=== PATIENT | female | born 1985 | race Caucasian/White ===

== ENCOUNTER 2017-07-17 18:59 | Observation (INO) | payer MEDICAID ==
[2017-07-17] MEDS ORDERED: Sodium Chloride 0.9% 1,000 ML IV ONE (19:09)
--- NOTE | 2017-07-17 19:09 | EDM.PDOC ---
ED HPI GENERAL MEDICAL PROBLEM - General Chief Complaint: Back Pain or Injury Stated Complaint: LOWER BACK PAIN Time Seen by Provider: 07/17/17 19:01 Source of Information: Reports: Patient, RN, RN Notes Reviewed History Limitations: Reports: No Limitations - History of Present Illness INITIAL COMMENTS - FREE TEXT/NARRATIVE: Patient presents to the emergency room at [facility] complaining of right flank pain that started about 3 hours ago. The patient states that the pain was unprovoked. The patient states the pain is sharp and stabbing. The patient denies any injury or trauma to the back. Patient denies any back surgeries. The patient states she has noticed an odor to her urine and does have trouble urinating. The patient states that it is difficult to walk and bend due to the pain. The patient denies any numbness tingling or paresthesia to any extremity. The patient states in October 2015 she did have kidney stones which caused her to become septic. At that time she had a double J-stent placed in the right ureter by Dr. Debbie Campo. The patient denies any abdominal or pelvic pain. The patient complains of nausea but she has not vomited. No diarrhea. Patient states that she may have seen blood in her urine but she is not sure. The patient states she has a poor appetite and has not eaten since yesterday. 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 (see below) (None) Right Flank Pain Score (Numeric/FACES): 9 - Related Data Allergies Allergy/AdvReac Type Severity Reaction Status Date / Time buspirone [From BuSpar] Allergy Confusion Verified 07/17/17 19:19 diphenhydramine HCl Allergy Itching Verified 07/17/17 19:19 [From Benadryl] Penicillins Allergy Rash Verified 07/17/17 19:19 Home Meds: Home Meds Acetaminophen [Tylenol] 650 mg PO Q4H 01/02/17 [History] Chlorhexidine [Chlorhexidine Flavor] 1 applic PO DAILY 01/02/17 [History] Ibuprofen 800 mg PO Q4H PRN 01/02/17 [History] LORazepam 0.5 mg PO TID PRN 01/02/17 [History] Propranolol [Inderal LA] 80 mg PO DAILY 01/02/17 [History] QUEtiapine [SEROquel] 100 mg PO BEDTIME 01/02/17 [History] Venlafaxine [Effexor XR] 150 mg PO DAILY 01/02/17 [History] Zolpidem [Ambien] 10 mg PO BEDTIME PRN 01/02/17 [History] Levofloxacin [IMW: Levofloxacin] 750 mg PO DAILY #7 tab 01/04/17 [Rx] Nicotine [Habitrol] 14 mg TRDERM DAILY #30 patch 01/04/17 [Rx] Sulfamethoxazole/Trimethoprim [Bactrim Ds Tablet] 1 each PO BID #14 tablet 01/04 [Rx] Tamsulosin HCl [Flomax] 0.4 mg PO DAILY #5 cap.er.24h 07/17/17 [Rx] Past Medical History HEENT History: Reports: None Cardiovascular History: Reports: None Respiratory History: Reports: Asthma Gastrointestinal History: Reports: Cholelithiasis, GERD Genitourinary History: Reports: Renal Calculus 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, , Spontaneous Musculoskeletal History: Reports: None Neurological History: Reports: Headaches, Chronic, Migraines, Seizure Psychiatric History: Reports: Anxiety, Depression, Panic Attack Endocrine/Metabolic History: Reports: Obesity/BMI 30+ Hematologic History: Reports: None Immunologic History: Reports: None Oncologic (Cancer) History: Reports: Other (See Below) Other Oncologic History: 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 Dermatologic History: Reports: None - Infectious Disease History Infectious Disease History: Reports: MRSA Other Infectious Disease History: Mononucleosis x3 before the age of 15, previous HPV as above - Past Surgical History HEENT Surgical History: Reports: Adenoidectomy, Myringotomy w Tube(s), Oral Surgery, Tonsillectomy Female Surgical History: Reports: Section, Cervical Cryotherapy, Lithotripsy/ESWL, Ureteral Stent, Other (See Below) Musculoskeletal Surgical History: Reports: None, Arthroscopic Procedure, Other ( See Below) - Past Imaging History Past Imaging History: Reports: CAT Scan, MRI Social & Family History - Family History Family Medical History: Noncontributory - Tobacco Use Smoking Status *Q: Current Every Day Smoker Years of Tobacco use: 5 Packs/Tins Daily: 1 Second Hand Smoke Exposure: No - Caffeine Use Caffeine Use: Reports: Soda (2 sodas per day). Denies: Coffee, Energy Drinks, Tea - Alcohol Use Days Per Week of Alcohol Use: 0 (No previous DWIs, problems with alcohol abuse, etc.) - Recreational Drug Use Recreational Drug Use: Yes Drug Use in Last 12 Months: No Recreational Drug Type: Reports: Marijuana/Hashish Recreational Drug Use Frequency: Rarely Recreational Drug Last Use: 3 sodas per day - Living Situation & Occupation Living situation: Reports: with Significant Other Occupation: Unemployed ED ROS GENERAL - Review of Systems Review Of Systems: See Below Constitutional: Reports: Chills, Decreased Appetite. Denies: Fever, Weakness Respiratory: Denies: Shortness of Breath, Cough Cardiovascular: Denies: Chest Pain, Palpitations GI/Abdominal: Reports: Nausea. Denies: Abdominal Pain, Diarrhea, Vomiting : Reports: Flank Pain, Hematuria, Urinary Retention Skin: Reports: No Symptoms Neurological: Reports: No Symptoms. Denies: Dizziness, Headache ED EXAM,LOWER BACK PAIN/INJURY - Physical Exam Exam: See Below Exam Limited By: No Limitations General Appearance: Alert, Moderate Distress, Obese Respiratory/Chest: No Respiratory Distress, Lungs Clear, Normal Breath Sounds Cardiovascular: Normal Peripheral Pulses, Regular Rate, Rhythm GI/Abdominal: Soft, Non-Tender, Abnormal Bowel Sounds (Hypoactive) (Female) Exam: Deferred Back Exam: CVA Tenderness (R), Muscle Spasm, Paraspinal Tenderness Neurological: Alert, Oriented x 3 Skin Exam: Warm, Dry, Intact, Normal Color, No Rash Course - Vital Signs Last Recorded V/S: Last Vital Signs Temp 37.1 C 07/17/17 19:14 Pulse 97 07/17/17 19:14 Resp 20 07/17/17 19:14 BP 140/96 H 07/17/17 19:14 Pulse Ox 95 07/17/17 19:14 - Orders/Labs/Meds Orders: Active Orders 24 hr Category Date Time Status Abdomen Pelvis wo Cont [CT] Stat Exams 07/17/17 19:07 Taken Sodium Chloride 0.9% [Saline Flush] Med 07/17/17 19:08 Active 10 ml FLUSH ASDIRECTED PRN Peripheral IV Insertion Adult [OM.PC] Routine Oth 07/17/17 19:08 Ordered Medication Orders Sodium Chloride (Saline Flush) 10 ml FLUSH ASDIRECTED PRN PRN Reason: Keep Vein Open Labs: Laboratory Tests 07/17/17 07/17/17 07/17/17 Range/Units 19:30 19:30 19:44 WBC 13.9 H (4.0-10.0) x10^3/uL RBC 4.72 (4.00-5.50) x10^6/uL Hgb 13.3 (12.0-16.0) g/dL Hct 40.4 (33.0-47.0) % MCV 85.6 (78.0-93.0) fL MCH 28.2 (26.0-32.0) pg MCHC 32.9 (32.0-36.0) g/dL RDW Coeff of Kathrin 14.4 (10.0-15.0) % Plt Count 522 H (130-400) x10^3/uL Add Manual Diff Yes Neutrophils % (Manual) 61 (50-80) % Lymphocytes % (Manual) 31 (25-50) % Monocytes % (Manual) 5 (2-11) % Eosinophils % (Manual) 1 (0-4) % Basophils % (Manual) 2 H (0-1) % Platelet Estimate Marked inc H Giant Platelets Occasional H Anisocytosis 1+ slight H Microcytosis 1+ slight H Sodium 139 (136-145) mmol/L Potassium 4.1 (3.5-5.1) mmol/L Chloride 103 (98-107) mmol/L Carbon Dioxide 26 (21-32) mmol/L BUN 8 (7-18) mg/dL Creatinine 0.8 (0.55-1.02) mg/dL Est Cr Clr Drug Dosing 94.51 mL/min Estimated GFR (MDRD) > 60 Glucose 108 H (74-106) mg/dL Calcium 8.8 (8.5-10.1) mg/dL Urine Color Dark yellow H (YELLOW) Urine Appearance Turbid H (CLEAR) Urine pH 6.5 (5.0-8.0) Ur Specific Dumas >=1.030 Urine Protein 100 H (NEGATIVE) mg/dL Urine Glucose (UA) Negative (NEGATIVE) mg/dL Urine Ketones Negative (NEGATIVE) mg/dL Urine Occult Blood Large H (NEGATIVE) Urine Nitrite Negative (NEGATIVE) Urine Bilirubin Negative (NEGATIVE) Urine Urobilinogen 0.2 (0.2) EU/dL Ur Leukocyte Esterase Small H (NEGATIVE) Urine RBC >100 H (NOT SEEN) /HPF Urine WBC 5-10 H (NOT SEEN) /HPF Ur Squamous Epith Cells Moderate H (NEGATIVE) /HPF Amorphous Sediment Few Urine Bacteria Moderate H (NEGATIVE) /HPF Urine Mucus Moderate H (NEGATIVE) /LPF Urine HCG, Qual (NEGATIVE) 07/17/17 Range/Units 19:44 WBC (4.0-10.0) x10^3/uL RBC (4.00-5.50) x10^6/uL Hgb (12.0-16.0) g/dL Hct (33.0-47.0) % MCV (78.0-93.0) fL MCH (26.0-32.0) pg MCHC (32.0-36.0) g/dL RDW Coeff of Kathrin (10.0-15.0) % Plt Count (130-400) x10^3/uL Add Manual Diff Neutrophils % (Manual) (50-80) % Lymphocytes % (Manual) (25-50) % Monocytes % (Manual) (2-11) % Eosinophils % (Manual) (0-4) % Basophils % (Manual) (0-1) % Platelet Estimate Giant Platelets Anisocytosis Microcytosis Sodium (136-145) mmol/L Potassium (3.5-5.1) mmol/L Chloride (98-107) mmol/L Carbon Dioxide (21-32) mmol/L BUN (7-18) mg/dL Creatinine (0.55-1.02) mg/dL Est Cr Clr Drug Dosing mL/min Estimated GFR (MDRD) Glucose (74-106) mg/dL Calcium (8.5-10.1) mg/dL Urine Color (YELLOW) Urine Appearance (CLEAR) Urine pH (5.0-8.0) Ur Specific Dumas Urine Protein (NEGATIVE) mg/dL Urine Glucose (UA) (NEGATIVE) mg/dL Urine Ketones (NEGATIVE) mg/dL Urine Occult Blood (NEGATIVE) Urine Nitrite (NEGATIVE) Urine Bilirubin (NEGATIVE) Urine Urobilinogen (0.2) EU/dL Ur Leukocyte Esterase (NEGATIVE) Urine RBC (NOT SEEN) /HPF Urine WBC (NOT SEEN) /HPF Ur Squamous Epith Cells (NEGATIVE) /HPF Amorphous Sediment Urine Bacteria (NEGATIVE) /HPF Urine Mucus (NEGATIVE) /LPF Urine HCG, Qual Negative (NEGATIVE) Meds: Medications Generic Name Dose Route Start Last Admin Trade Name Baldev PRN Reason Stop Dose Admin Sodium Chloride 10 ml 07/17/17 19:08 Saline Flush FLUSH ASDIRECTED PRN Keep Vein Open Discontinued Medications Generic Name Dose Route Start Last Admin Trade Name Freq PRN Reason Stop Dose Admin Hydromorphone HCl 2 mg 07/17/17 20:47 Dilaudid IVPUSH 07/17/17 20:48 ONETIME ONE Sodium Chloride 1,000 mls @ 999 mls/hr 07/17/17 19:09 07/17/17 19:48 Normal Saline IV 07/17/17 20:09 999 mls/hr ONETIME ONE Administration Morphine Sulfate 2 mg 07/17/17 19:10 07/17/17 19:51 Morphine IVPUSH 07/17/17 19:11 2 mg ONETIME ONE Administration Ondansetron HCl 4 mg 07/17/17 19:19 07/17/17 19:48 Zofran IVPUSH 07/17/17 19:20 4 mg ONETIME ONE Administration - Radiology Interpretation Free Text/Narrative:: CT Abd/Pelvis: Right ureter contains a stent which is in satisfactory position. There is a 4-5mm calculus within the mid to distal right ureter adjacent to the stent and mild right-sided hydroureteronephrosis See scanned report in EMR CT Results Date: 07/17/17 CT Results Time: 20:19 Departure - Departure Time of Disposition: 20:55 Disposition: Refer to Observation Condition: Good Clinical Impression: Ureteral calculus, Hydroureteronephrosis, Flank pain, acute Urinary tract infection Qualifiers: Urinary tract infection type: acute cystitis Hematuria presence: with hematuria Qualified Code(s): N30.01 - Acute cystitis with hematuria - Discharge Information Prescriptions: Tamsulosin HCl [Flomax] 0.4 mg PO DAILY #5 cap.er.24h ED Communication - ED Communication Date/Time Date: 07/17/17 Time Called: 20:32 - Discussed Case With (1) Discussed Case With (1): Outpatient Provider (Dr. Mango Correa, Urology) - Conversation Summary Outpatient Provider Agreed to Follow-up on this Patient: Yes Patient Aware of Amendments fo Care Plan: Yes Summary Comment: Dr. Debbie Campo consulted regarding this patient. Dr. Campo states he placed the stent 1 1/2 year ago and it should have been removed back then. states he has been trying numerous times, since stent placement, to reach patient for removal of stent. He states his office has been unsuccessful in trying to reach patient phone and mail. Patient was also set up for surgery for the stent, but patient did not show up. In viewing today's CT scan, stone is the same one from November 07 without much change. Recommend antibiotics, flomax, and admit for observation given her previous sepsis. Patient may need intervention if not better over the next couple days. - Problem List Review Problem List Initiated/Reviewed/Updated: Yes - My Orders Last 24 Hours: My Active Orders 07/17/17 19:07 Abdomen Pelvis wo Cont [CT] Stat 07/17/17 19:08 Sodium Chloride 0.9% [Saline Flush] 10 ml FLUSH ASDIRECTED PRN Peripheral IV Insertion Adult [OM.PC] Routine - Assessment/Plan Admission H&P: Please use this note as an admission H&P Last 24 Hours: My Active Orders 07/17/17 19:07 Abdomen Pelvis wo Cont [CT] Stat 07/17/17 19:08 Sodium Chloride 0.9% [Saline Flush] 10 ml FLUSH ASDIRECTED PRN Peripheral IV Insertion Adult [OM.PC] Routine
[2017-07-17] MEDS ORDERED: Morphine 2 MG/ML Syringe IVPUSH ONE (19:10)
[2017-07-17] MEDS ORDERED: Ondansetron 4 MG/2 ML SDV IVPUSH ONE (19:19)
[2017-07-17 19:51] LABS: CHLORIDE,CL 103 mmol/L (98-107); SODIUM,NA 139 mmol/L (136-145)
[2017-07-17] MEDS ORDERED: HYDROmorphone 1 MG/ML Syringe IVPUSH ONE (20:47)
[2017-07-17] MEDS ORDERED: Acetaminophen 325 MG Tab PO PRN (21:27)
[2017-07-17] MEDS ORDERED: Albuterol 0.083% 2.5 MG/3 ML Neb Soln INH PRN (21:40)
[2017-07-17] MEDS ORDERED: LORazepam 0.5 MG Tab PO PRN (21:40)
--- NOTE | 2017-07-17 21:49 | PCM.HP ---
H&P History of Present Illness - General Date of Service: 07/17/17 Admit Problem/Dx: Admission Diagnosis/Problem Admission Diagnosis/Problem Pyelonephritis Ureteric stone Acute Cystitis with hematuria Right-side hydronephrosis Right Flank Pain Source of Information: Patient, RN, RN Notes Reviewed History Limitations: Reports: No Limitations - History of Present Illness Initial Comments - Free Text/Narative: Patient presented to the emergency room at [facility] complaining of right flank pain that started around 4pm this afternoon. The patient states that the pain was unprovoked. The patient states the pain is sharp and stabbing. The patient denies any injury or trauma to the back. Patient denies any back surgeries. The patient states she has noticed an odor to her urine and does have trouble urinating. The patient states that it is difficult to walk and bend due to the pain. The patient denies any numbness tingling or paresthesia to any extremity. The patient states in October 2015 she did have kidney stones which caused her to become septic. At that time she had a double J-stent placed in the right ureter by Dr. Debbie Campo. The patient denies any abdominal or pelvic pain. The patient complains of nausea but she has not vomited. No diarrhea. Patient states that she may have seen blood in her urine but she is not sure. The patient states she has a poor appetite and has not eaten since yesterday. Onset of Symptoms: Reports: Today Symptom Onset Date: 07/17/17 Symptom Onset Time: 16:00 Duration of Symptoms: Reports: Constant Location: Reports: Back (Right flank) Quality: Reports: Sharp, Stabbing Severity: Severe Improves with: Reports: None Worsens with: Reports: Movement Context: Denies: Sick Contact, Activity/Exercise, Trauma Associated Symptoms: Reports: Nausea/Vomiting Right Flank Pain Score (Numeric/FACES): 9 - Related Data Allergies/Adverse Reactions: Allergies Allergy/AdvReac Type Severity Reaction Status Date / Time buspirone [From BuSpar] Allergy Confusion Verified 07/17/17 19:19 diphenhydramine HCl Allergy Itching Verified 07/17/17 19:19 [From Benadryl] Penicillins Allergy Rash Verified 07/17/17 19:19 Home Medications: Home Meds Acetaminophen [Tylenol] 650 mg PO Q4H 01/02/17 [History] LORazepam 0.5 mg PO TID PRN 01/02/17 [History] Propranolol [Inderal LA] 80 mg PO DAILY 01/02/17 [History] QUEtiapine [SEROquel] 100 mg PO BEDTIME 01/02/17 [History] Venlafaxine [Effexor XR] 150 mg PO DAILY 01/02/17 [History] Zolpidem [Ambien] 10 mg PO BEDTIME PRN 01/02/17 [History] Albuterol Sulfate [Proair Hfa] 2 inh INH Q4H PRN 07/17/17 [History] Venlafaxine HCl [Venlafaxine ER] 75 mg PO DAILY 07/17/17 [History] Past Medical History Respiratory History: Reports: Asthma Gastrointestinal History: Reports: Cholelithiasis, GERD Genitourinary History: Reports: Pyelonephritis, Renal Calculus 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, , 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 Neurological History: Reports: Headaches, Chronic, Migraines, Seizure Psychiatric History: Reports: Anxiety, Depression, Panic Attack Endocrine/Metabolic History: Reports: Obesity/BMI 30+ Oncologic (Cancer) History: Reports: Other (See Below) Other Oncologic History: 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 - Infectious Disease History Infectious Disease History: Reports: MRSA Other Infectious Disease History: Mononucleosis x3 before the age of 15, previous HPV as above - Past Surgical History HEENT Surgical History: Reports: Adenoidectomy, Myringotomy w Tube(s), Oral Surgery, Tonsillectomy Female Surgical History: Reports: Section, Cervical Cryotherapy, Lithotripsy/ESWL, Ureteral Stent, Other (See Below) Musculoskeletal Surgical History: Reports: None, Arthroscopic Procedure, Other ( See Below) Social & Family History - Family History Family Medical History: Noncontributory - Tobacco Use Smoking Status *Q: Current Every Day Smoker Years of Tobacco use: 6 Packs/Tins Daily: 0.5 Second Hand Smoke Exposure: No - Caffeine Use Caffeine Use: Reports: Coffee, Soda - Alcohol Use Alcohol Use History: No Days Per Week of Alcohol Use: 0 (No previous DWIs, problems with alcohol abuse) - Recreational Drug Use Recreational Drug Use: Yes Drug Use in Last 12 Months: Yes Recreational Drug Type: Reports: Marijuana/Hashish Recreational Drug Use Frequency: Rarely Recreational Drug Last Use: 3 sodas per day - Sexual History Sexual History: Reports: Same Sex Partner, Sexually Active - Living Situation & Occupation Living situation: Reports: with Significant Other Occupation: Unemployed H&P Review of Systems - Review of Systems: Review Of Systems: See Below General: Reports: Chills, Decreased Appetite. Denies: Fever, Night Sweats, Diaphoresis Pulmonary: Denies: Shortness of Breath, Cough Cardiovascular: Denies: Chest Pain, Palpitations Gastrointestinal: Reports: Nausea. Denies: Abdominal Pain, Diarrhea, Vomiting Genitourinary: Reports: Dysuria, Hematuria, Retention, Flank Pain Musculoskeletal: Reports: Back Pain (Right flank) Skin: Reports: No Symptoms Psychiatric: Reports: No Symptoms Exam - Exam Exam: See Below - Vital Signs Vital Signs: Last Vital Signs Temp 37.1 C 07/17/17 19:14 Pulse 85 07/17/17 21:00 Resp 20 07/17/17 19:14 BP 140/96 H 07/17/17 19:14 Pulse Ox 95 07/17/17 21:00 Weight: 154.221 kg - Exam General: Alert, Oriented Lungs: Clear to Auscultation, Normal Respiratory Effort Cardiovascular: Regular Rate, Regular Rhythm, Normal S1, Normal S2 GI/Abdominal Exam: Soft, Non-Tender, Abnormal Bowel Sounds (Hyperactive) (Female) Exam: Deferred Back Exam: CVA Tenderness (R), Muscle Spasm, Paraspinal Tenderness Peripheral Pulses: 2+: Radial (L), Radial (R) Skin: Warm, Dry, Intact Neuro Extensive - Mental Status: Alert, Oriented x3 - Patient Data Result Diagrams: 07/17/17 19:30 07/17/17 19:30 *Q Meaningful Use (ADM) - VTE *Q VTE Criteria *Q: None - Stroke *Q Stroke Criteria *Q: - AMI *Q AMI Criteria *Q: - Problem List (1) Pyelonephritis SNOMED Code(s): 73668518 ICD Code: N12 - TUBULO-INTERSTITIAL NEPHRITIS, NOT SPCF ACUTE OR CHRONIC Status: Acute Priority: Medium Current Visit: Yes Onset Date: ~07/17/17 (2) Ureteral calculus SNOMED Code(s): 37041646 ICD Code: N20.1 - CALCULUS OF URETER Status: Chronic Priority: Medium Current Visit: Yes Onset Date: ~11/11/15 Problem Details: October 2015 right ureteral stent placed for calculus (3) Hydroureteronephrosis SNOMED Code(s): 98218126 ICD Code: N13.30 - UNSPECIFIED HYDRONEPHROSIS Status: Acute Priority: Medium Current Visit: Yes Onset Date: ~07/17/17 (4) Urinary tract infection SNOMED Code(s): 57008150 ICD Code: N39.0 - URINARY TRACT INFECTION, SITE NOT SPECIFIED Status: Acute Priority: Medium Current Visit: Yes Onset Date: ~07/17/17 Qualifiers: Urinary tract infection type: acute cystitis Hematuria presence: with hematuria Qualified Code(s): N30.01 - Acute cystitis with hematuria Problem List Initiated/Reviewed/Updated: Yes Orders Last 24hrs: Active Orders 24 hr Category Date Time Status Patient Status [ADT] Routine ADT 07/17/17 21:17 Active Ambulate [RC] PER UNIT ROUTINE Care 07/17/17 21:32 Active Height and Weight [RC] UPON Care 07/17/17 21:27 Active Intake and Output [RC] QSHIFT Care 07/17/17 21:32 Active May Shower [RC] ASDIRECTED Care 07/17/17 21:27 Active Oxygen Therapy [RC] PRN Care 07/17/17 21:17 Active Up ad Melania [RC] ASDIRECTED Care 07/17/17 21:27 Active VTE/DVT Education [RC] PER UNIT ROUTINE Care 07/17/17 21:17 Active Vital Signs [RC] Q4H Care 07/17/17 21:17 Active Consult to Case Management [CONS] Routine Cons 07/17/17 21:27 Active Regular Diet [DIET] Diet 07/17/17 Breakfast Active BASIC METABOLIC PANEL,BMP [CHEM] Routine Lab 07/18/17 05:11 Ordered CBC WITH AUTO DIFF [HEME] Routine Lab 07/18/17 05:11 Ordered CULTURE URINE [RM] Stat Lab 07/17/17 19:30 Ordered Acetaminophen [Tylenol] Med 07/17/17 21:27 Active 650 mg PO Q4H PRN Albuterol Sulfate [Proair Hfa] Med 07/17/17 21:40 Ordered 2 inh INH Q4H PRN Ciprofloxacin in D5W [Cipro in D5W 400 MG/200 ML] 400 Med 07/17/17 22:00 Ordered mg Premix Bag 1 bag IV Q12H Ketorolac [Toradol] Med 07/17/17 21:27 Active 30 mg IVPUSH Q6H PRN LORazepam [LORazepam] Med 07/17/17 21:40 Ordered 0.5 mg PO TID PRN Morphine Med 07/17/17 21:27 Active 2 mg IVPUSH Q2H PRN Nicotine [Habitrol] Med 07/17/17 21:30 Active 21 mg TRDERM DAILY Ondansetron [Zofran] Med 07/17/17 21:27 Active 4 mg IV Q6H PRN Propranolol [Inderal LA] Med 07/18/17 08:00 Ordered 80 mg PO DAILY QUEtiapine [SEROquel] Med 07/18/17 20:00 Ordered 100 mg PO BEDTIME Sodium Chloride 0.9% [Normal Saline] 1,000 ml Med 07/17/17 21:45 Active IV ASDIRECTED Venlafaxine HCl [Venlafaxine ER] Med 07/18/17 08:00 Ordered 75 mg PO DAILY Venlafaxine [Effexor XR] Med 07/18/17 08:00 Ordered 150 mg PO DAILY Zolpidem Med 07/17/17 21:40 Ordered 10 mg PO BEDTIME PRN Resuscitation Status Routine Resus Stat 07/17/17 21:17 Ordered Medication Orders Acetaminophen (Tylenol) 650 mg PO Q4H PRN PRN Reason: Pain (Mild 1-3)/fever Sodium Chloride (Normal Saline) 1,000 mls @ 150 mls/hr IV ASDIRECTED [facility] Ketorolac Tromethamine (Toradol) 30 mg IVPUSH Q6H PRN PRN Reason: Pain (moderate 4-6) Morphine Sulfate (Morphine) 2 mg IVPUSH Q2H PRN PRN Reason: Pain (severe 7-10) Nicotine (Habitrol) 21 mg TRDERM DAILY DAVID Non-Formulary Medication (Albuterol Sulfate [Proair Hfa]) 2 inh INH Q4H PRN PRN Reason: Wheezing Non-Formulary Medication (Lorazepam [Lorazepam]) 0.5 mg PO TID PRN PRN Reason: Anxiety Non-Formulary Medication (Propranolol [Inderal La]) 80 mg PO DAILY DAVID Non-Formulary Medication (Quetiapine [Seroquel]) 100 mg PO BEDTIME DAVID Non-Formulary Medication (Venlafaxine Hcl [Venlafaxine Er]) 75 mg PO DAILY DAVID Non-Formulary Medication (Venlafaxine [Effexor Xr]) 150 mg PO DAILY DAVID Non-Formulary Medication (Zolpidem) 10 mg PO BEDTIME PRN PRN Reason: Insomnia Ondansetron HCl (Zofran) 4 mg IV Q6H PRN PRN Reason: Nausea/Vomiting Sodium Chloride (Saline Flush) 10 ml FLUSH ASDIRECTED PRN PRN Reason: Keep Vein Open Assessment/Plan Comment:: 32-year-old female patient with a past medical history of asthma depression anxiety obesity and GERD is admitted to the observation with a primary diagnosis of pyelonephritis, ureteral calculus, UTI, and right flank pain. The patient will be started on IV Cipro every 12 hours. We will also continue IV fluids at 150 per hour. The patient will be on a regular diet. DVT prophylaxis will be early ambulation. The patient is a code 1. This case was discussed with Dr. Mango Campo who recommended observation admission with IV antibiotics given the patient's previous history of sepsis from kidney stones. The patient will need urology follow-up after discharge. She will be continued on the Cipro at discharge. The patient will receive IV pain medications as needed. We'll continue all home medications without any changes. I do not anticipate the patient being admitted for greater than 48 hours.
[2017-07-17] MEDS: Nicotine 21 MG/24 Hr Patch TRDERM SCH (21:55)
[2017-07-17] MEDS: Ciprofloxacin in D5W 400 MG in Premix Bag 1 BAG IV SCH ×2 (21:56)
[2017-07-17] MEDS: Sodium Chloride 0.9% 1,000 ML IV SCH (22:00)
[2017-07-17] MEDS: Zolpidem 5 MG Tab PO PRN (22:53)
[2017-07-17] MEDS: QUEtiapine 100 MG Tab PO SCH (22:53)
[2017-07-17] MEDS: Sodium Chloride 0.9% 10 ML Syringe FLUSH PRN ×2 (23:15→23:16)
[2017-07-17] MEDS: Morphine 2 MG/ML Syringe IVPUSH PRN (23:15)
[2017-07-18] MEDS: Morphine 2 MG/ML Syringe IVPUSH PRN ×8 (02:35→22:07)
[2017-07-18] MEDS: Sodium Chloride 0.9% 10 ML Syringe FLUSH PRN ×3 (02:36→19:43)
[2017-07-18] MEDS: Sodium Chloride 0.9% 1,000 ML IV SCH (05:23)
[2017-07-18 07:00] LABS: CHLORIDE,CL 106 mmol/L (98-107); SODIUM,NA 140 mmol/L (136-145)
[2017-07-18] MEDS ORDERED: PROPRANOLOL 80 MG PO SCH (08:00)
[2017-07-18] MEDS: Ketorolac 30 MG/ML SDV IVPUSH PRN ×2 (08:23→19:38)
[2017-07-18] MEDS: Nicotine 21 MG/24 Hr Patch TRDERM SCH (08:23)
[2017-07-18] MEDS: Venlafaxine 75 MG Cap.ER PO SCH (08:24)
[2017-07-18] MEDS: Tamsulosin 0.4 MG Cap.ER PO SCH (08:24)
[2017-07-18] MEDS: Venlafaxine 150 MG Cap.ER PO SCH (08:24)
[2017-07-18] MEDS: Ciprofloxacin in D5W 400 MG in Premix Bag 1 BAG IV SCH ×4 (10:45→22:14)
--- NOTE | 2017-07-18 11:30 | PCM.PN ---
- General Info Date of Service: 07/18/17 Admission Dx/Problem (Free Text): Admission Diagnosis/Problem Admission Diagnosis/Problem Pyelonephritis Ureteric stone Acute Cystitis with hematuria Right-side hydronephrosis Right Flank Pain Subjective Update: Patient states she is feeling much better today. The patient states she only has pain when she is up ambulating. The patient states she has no pain when she is lying in bed. The patient states her appetite is still decreased and has not felt like eating. The patient states she is drinking very well. The patient continues to have some issues with completely emptying her bladder. The patient has not had any shortness of breath. No chest pain. No focal neurological deficits. The patient states that her urine still has an older. The patient is tolerating IV antibiotics without any problems. Functional Status: Reports: Pain Controlled, Tolerating Diet, Ambulating - Review of Systems General: Reports: No Symptoms. Denies: Fever, Chills Pulmonary: Denies: Shortness of Breath, Cough Cardiovascular: Denies: Chest Pain, Palpitations Gastrointestinal: Reports: Nausea. Denies: Abdominal Pain, Vomiting Genitourinary: Reports: Flank Pain. Denies: Dysuria Skin: Reports: No Symptoms Neurological: Reports: No Symptoms. Denies: Dizziness, Headache - Patient Data Vitals - Most Recent: Last Vital Signs Temp 36.8 C 07/18/17 10:00 Pulse 86 07/18/17 10:00 Resp 20 07/18/17 10:00 BP 106/45 L 07/18/17 10:00 Pulse Ox 98 07/18/17 10:00 Weight - Most Recent: 154.221 kg I&O - Last 24 Hours: Intake & Output 07/17/17 07/18/17 07/18/17 22:59 06:59 14:59 Intake Total 200 1945 120 Output Total 775 500 Balance 200 1170 -380 Lab Results Last 24 Hours: Laboratory Results - last 24 hr 07/18/17 07/18/17 Range/Units 06:38 06:38 WBC 12.2 H (4.0-10.0) x10^3/uL RBC 4.12 (4.00-5.50) x10^6/uL Hgb 11.6 L D (12.0-16.0) g/dL Hct 36.2 (33.0-47.0) % MCV 87.9 (78.0-93.0) fL MCH 28.2 (26.0-32.0) pg MCHC 32.0 (32.0-36.0) g/dL RDW Coeff of Kathrin 14.4 (10.0-15.0) % Plt Count 381 D (130-400) x10^3/uL Neut % (Auto) 57.9 (50.0-80.0) % Lymph % (Auto) 32.0 (25.0-50.0) % [place] % (Auto) 6.8 (2.0-11.0) % Eos % (Auto) 3.0 (0.0-4.0) % Baso % (Auto) 0.3 (0.2-1.2) % Sodium 140 (136-145) mmol/L Potassium 3.6 (3.5-5.1) mmol/L Chloride 106 (98-107) mmol/L Carbon Dioxide 27 (21-32) mmol/L BUN 6 L (7-18) mg/dL Creatinine 0.8 (0.55-1.02) mg/dL Est Cr Clr Drug Dosing 94.51 mL/min Estimated GFR (MDRD) > 60 Glucose 98 (74-106) mg/dL Calcium 7.6 L (8.5-10.1) mg/dL Med Orders - Current: Current Medications Acetaminophen (Tylenol) 650 mg PO Q4H PRN PRN Reason: Pain (Mild 1-3)/fever Albuterol (Proventil Neb Soln) 2.5 mg INH Q4H PRN PRN Reason: Wheezing Ciprofloxacin/Dextrose 400 mg/ (Premix) 200 mls @ 200 mls/hr IV Q12H [facility] Last Admin: 07/18/17 10:45 Dose: 200 mls/hr Ketorolac Tromethamine (Toradol) 30 mg IVPUSH Q6H PRN PRN Reason: Pain (moderate 4-6) Last Admin: 07/18/17 08:23 Dose: 30 mg Lorazepam (Ativan) 0.5 mg PO TID PRN PRN Reason: Anxiety Morphine Sulfate (Morphine) 2 mg IVPUSH Q2H PRN PRN Reason: Pain (severe 7-10) Last Admin: 07/18/17 11:23 Dose: 2 mg Nicotine (Habitrol) 21 mg TRDERM DAILY [facility] Last Admin: 07/18/17 08:23 Dose: 21 mg Non-Formulary Medication (Propranolol [Inderal La]) 80 mg PO DAILY [facility] Ondansetron HCl (Zofran) 4 mg IV Q6H PRN PRN Reason: Nausea/Vomiting Quetiapine Fumarate (Seroquel) 100 mg PO BEDTIME [facility] Last Admin: 07/17/17 22:53 Dose: 100 mg Sodium Chloride (Saline Flush) 10 ml FLUSH ASDIRECTED PRN PRN Reason: Keep Vein Open Tamsulosin HCl (Flomax) 0.4 mg PO DAILY [facility] Last Admin: 07/18/17 08:24 Dose: 0.4 mg Venlafaxine HCl (Effexor Xr) 75 mg PO DAILY [facility] Last Admin: 07/18/17 08:24 Dose: 75 mg Venlafaxine HCl (Effexor Xr) 150 mg PO DAILY [facility] Last Admin: 07/18/17 08:24 Dose: 150 mg Zolpidem Tartrate (Ambien) 10 mg PO BEDTIME PRN PRN Reason: Insomnia Last Admin: 07/17/17 22:53 Dose: 10 mg Discontinued Medications Hydromorphone HCl (Dilaudid) 2 mg IVPUSH ONETIME ONE Stop: 07/17/17 20:48 Last Admin: 07/17/17 20:52 Dose: 2 mg Sodium Chloride (Normal Saline) 1,000 mls @ 999 mls/hr IV ONETIME ONE Stop: 07/17/17 20:09 Last Admin: 07/17/17 19:48 Dose: 999 mls/hr Sodium Chloride (Normal Saline) 1,000 mls @ 150 mls/hr IV ASDIRECTED [facility] Last Admin: 07/18/17 05:23 Dose: 150 mls/hr Morphine Sulfate (Morphine) 2 mg IVPUSH ONETIME ONE Stop: 07/17/17 19:11 Last Admin: 07/17/17 19:51 Dose: 2 mg Ondansetron HCl (Zofran) 4 mg IVPUSH ONETIME ONE Stop: 07/17/17 19:20 Last Admin: 07/17/17 19:48 Dose: 4 mg Quetiapine Fumarate (Seroquel) 100 mg PO BEDTIME [facility] Sodium Chloride (Saline Flush) 10 ml FLUSH ASDIRECTED PRN PRN Reason: Keep Vein Open Last Admin: 07/18/17 05:19 Dose: 10 ml - Exam General: Alert, Oriented Lungs: Clear to Auscultation, Normal Respiratory Effort Cardiovascular: Regular Rate, Regular Rhythm, No Murmurs GI/Abdominal Exam: Normal Bowel Sounds, Soft, Non-Tender Back Exam: CVA Tenderness (R), Muscle Spasm, Paraspinal Tenderness Peripheral Pulses: 2+: Radial (L), Radial (R) Skin: Warm, Dry, Intact Neurological: No New Focal Deficit, Normal Speech - Problem List & Annotations (1) Pyelonephritis SNOMED Code(s): 76045154 Code(s): N12 - TUBULO-INTERSTITIAL NEPHRITIS, NOT SPCF ACUTE OR CHRONIC Status: Acute Priority: Medium Current Visit: Yes Onset Date: ~07/17/17 (2) Ureteral calculus SNOMED Code(s): 26923047 Code(s): N20.1 - CALCULUS OF URETER Status: Chronic Priority: Medium Current Visit: Yes Onset Date: ~11/11/15 Annotation/Comment:: October 2015 right ureteral stent placed for calculus (3) Hydroureteronephrosis SNOMED Code(s): 24148279 Code(s): N13.30 - UNSPECIFIED HYDRONEPHROSIS Status: Acute Priority: Medium Current Visit: Yes Onset Date: ~07/17/17 (4) Urinary tract infection SNOMED Code(s): 26103719 Code(s): N39.0 - URINARY TRACT INFECTION, SITE NOT SPECIFIED Status: Acute Priority: Medium Current Visit: Yes Onset Date: ~07/17/17 Qualifiers: Urinary tract infection type: acute cystitis Hematuria presence: with hematuria Qualified Code(s): N30.01 - Acute cystitis with hematuria - Problem List Review Problem List Initiated/Reviewed/Updated: Yes - My Orders Last 24 Hours: My Active Orders 07/17/17 19:30 CULTURE URINE [RM] Stat 07/17/17 21:17 Patient Status [ADT] Routine Oxygen Therapy [RC] PRN VTE/DVT Education [RC] .PRN Vital Signs [RC] 02,06,10,14,18,22 Resuscitation Status Routine 07/17/17 21:27 May Shower [RC] .PRN Up ad Melania [RC] 08,20 Consult to Case Management [CONS] Routine Acetaminophen [Tylenol] 650 mg PO Q4H PRN Ketorolac [Toradol] 30 mg IVPUSH Q6H PRN Morphine 2 mg IVPUSH Q2H PRN Ondansetron [Zofran] 4 mg IV Q6H PRN 07/17/17 21:30 Nicotine [Habitrol] 21 mg TRDERM DAILY 07/17/17 21:32 Ambulate [RC] 08,20 Intake and Output [RC] 06,18 07/17/17 21:40 Albuterol [Proventil Neb Soln] 2.5 mg INH Q4H PRN LORazepam [Ativan] 0.5 mg PO TID PRN Zolpidem [Ambien] 10 mg PO BEDTIME PRN 07/17/17 22:00 Ciprofloxacin in D5W [Cipro in D5W 400 MG/200 ML] 400 mg Premix Bag 1 bag IV Q12H 07/17/17 22:15 QUEtiapine [SEROquel] 100 mg PO BEDTIME 07/18/17 08:00 Propranolol [Inderal LA] 80 mg PO DAILY Tamsulosin [Flomax] 0.4 mg PO DAILY Venlafaxine [Effexor XR] 150 mg PO DAILY Venlafaxine [Effexor XR] 75 mg PO DAILY 07/18/17 08:30 CULTURE MRSA CLEARANCE [RM] Routine 07/18/17 10:42 Sodium Chloride 0.9% [Saline Flush] 10 ml FLUSH ASDIRECTED PRN Convert IV to Saline Lock [OM.PC] Routine 07/19/17 05:11 BASIC METABOLIC PANEL,BMP [CHEM] Routine CBC WITH AUTO DIFF [HEME] Routine UA W/MICROSCOPIC [URIN] Routine - Assessment Assessment:: 1. Pyelonephritis 2. Ureteral calculus 3. Acute Cystitis with hematuria 4. Right Flank Pain - Plan Plan:: 32-year-old female patient with a past medical history of asthma depression anxiety obesity and GERD is admitted to the observation with a primary diagnosis of pyelonephritis, ureteral calculus, UTI, and right flank pain. We will stop the IV fluids as the patient is tolerating by mouth fluids very well. We will continue with IV Cipro. I have encouraged the patient to get out of bed more often and ambulate. We will continue with the same IV pain medications. I will recheck blood work in the morning on July 19, 2017. The patient has a follow-up appointment already scheduled with Tomás Chavez at the [facility] on July 31, 2017. I have spoke with Tomás in regards to a urology follow-up once the patient has been discharged. I do anticipate the patient will be discharged tomorrow as long as her white blood cell count and pain remained well controlled.
[2017-07-18] MEDS: Propranolol 20 MG Tab PO SCH ×2 (13:57→19:47)
[2017-07-18] MEDS ORDERED: QUEtiapine 100 MG Tab PO SCH ×2 (20:00→23:00)
[2017-07-18] MEDS: Ondansetron 4 MG/2 ML SDV IV PRN (22:07)
[2017-07-18] MEDS: QUEtiapine 100 MG Tab PO SCH (22:12)
[2017-07-18] MEDS: Zolpidem 5 MG Tab PO PRN (23:09)
[2017-07-19] MEDS: Morphine 2 MG/ML Syringe IVPUSH PRN ×2 (06:31→09:40)
[2017-07-19] MEDS: Ketorolac 30 MG/ML SDV IVPUSH PRN (06:31)
[2017-07-19] MEDS: Sodium Chloride 0.9% 10 ML Syringe FLUSH PRN ×2 (06:37→09:40)
[2017-07-19] MEDS: Ondansetron 4 MG/2 ML SDV IV PRN (06:40)
[2017-07-19 07:27] LABS: CHLORIDE,CL 105 mmol/L (98-107); SODIUM,NA 139 mmol/L (136-145)
[2017-07-19] MEDS: Nicotine 21 MG/24 Hr Patch TRDERM SCH (09:02)
[2017-07-19] MEDS: Venlafaxine 150 MG Cap.ER PO SCH (09:02)
[2017-07-19] MEDS: Propranolol 20 MG Tab PO SCH (09:02)
[2017-07-19] MEDS: Tamsulosin 0.4 MG Cap.ER PO SCH (09:02)
[2017-07-19] MEDS: Venlafaxine 75 MG Cap.ER PO SCH (09:03)
[2017-07-19 09:37] VITALS: BP 129/64
[2017-07-19] MEDS: Ciprofloxacin in D5W 400 MG in Premix Bag 1 BAG IV SCH ×2 (09:39)
[2017-07-19] MEDS ORDERED: Metoclopramide 10 MG/2 ML SDV IVPUSH ONE ×2 (09:54→10:30)
--- NOTE | 2017-07-19 11:12 | PCM.DCSUM1 ---
Discharge Summary - Hospital Course Free Text/Narrative:: Pt. was admitted on 07-17-17 with acute onset of R sided flank pain. Pt. has a history of kidney stones and has had kidney stones in the past. Pt. was septic secondary to pyelonephritis and septic R ureteral stone. Pt. was hospitalized at [facility] in [place], on pressors, with SANCHEZ and multi-organ dysfunction secondary to the sepsis. Dr. Campo placed a stent in the R ureter. The pt. subsequently never followed up and wouldn't return calls from urology to have the stent removed. Pt. was admitted in [facility] by Andrew Ivy. Since that time, her WBCs have trended downward. Pt. pain has been adequately controlled with small, frequent doses of Morphine. Overall, she is feeling much better and states that she will be able to follow-up on her own as an outpatient. - Discharge Data Discharge Date: 07/19/17 Discharge Disposition: Home, Self-Care 01 Condition: Good - Discharge Diagnosis/Problem(s) (1) Pyelonephritis SNOMED Code(s): 91361918 ICD Code: N12 - TUBULO-INTERSTITIAL NEPHRITIS, NOT SPCF ACUTE OR CHRONIC Status: Acute Priority: Medium Onset Date: ~07/17/17 (2) Ureteral calculus SNOMED Code(s): 32193205 ICD Code: N20.1 - CALCULUS OF URETER Status: Chronic Priority: Medium Onset Date: ~11/11/15 Problem Details: October 2015 right ureteral stent placed for calculus - Patient Summary/Data Consults: Consultations 07/17/17 21:27 Consult to Case Management [CONS] Routine - Patient Instructions Diet: Regular Diet as Tolerated Activity: As Tolerated Driving: May Drive Today, Do Not Drive Showering/Bathing: May Shower Notify Provider of: Fever, Increased Pain, Swelling and Redness, Nausea and/or Vomiting - Discharge Plan Home Medications: Home Meds LORazepam 0.5 mg PO TID PRN 01/02/17 [History] Propranolol [Inderal LA] 80 mg PO DAILY 01/02/17 [History] QUEtiapine [SEROquel] 100 mg PO BEDTIME 01/02/17 [History] Venlafaxine [Effexor XR] 150 mg PO DAILY 01/02/17 [History] Zolpidem [Ambien] 10 mg PO BEDTIME PRN 01/02/17 [History] Albuterol Sulfate [Proair Hfa] 2 inh INH Q4H PRN 07/17/17 [History] Venlafaxine HCl [Venlafaxine ER] 75 mg PO DAILY 07/17/17 [History] Propranolol [Inderal] 40 mg PO BID tablet 07/19/17 [Rx] Tamsulosin [Flomax] 0.4 mg PO DAILY #0 cap.er 07/19/17 [Rx] Referrals: PCP,None [Primary Care Provider] - - Discharge Summary/Plan Comment DC Time >30 min.: Yes Discharge Summary/Plan Comment: Scheduled to follow-up with Tomás Chavez on Jul.31. Dr. Campo has been consulted and advised waiting to see if the pt. will pass the stone without intervention. He stated the the pt. may require open surgical removal of the stent, as it is likely calcified into the tissue of the kidney. Pt. was started on Flomax and will strain her urine. Her infection will be treated for the full 14 days. She was started on [place] 10/325mg every 6 hours for pain. Advised returning to ER if increased discomfort, fever, weakness, lightheadedness, chest pain, or shortness of breath. - Patient Data Vitals - Most Recent: Last Vital Signs Temp 36.9 C 07/19/17 09:36 Pulse 70 07/19/17 09:36 Resp 18 07/19/17 09:36 BP 129/64 07/19/17 09:36 Pulse Ox 98 07/19/17 09:36 Weight - Most Recent: 154.221 kg I&O - Last 24 hours: Intake & Output 07/18/17 07/19/17 07/19/17 22:59 06:59 14:59 Intake Total 1433 370 360 Output Total 300 1400 Balance 1133 -1030 360 Lab Results - Last 24 hrs: Laboratory Results - last 24 hr 07/19/17 07/19/17 07/19/17 Range/Units 07:05 07:05 09:06 WBC 10.1 H (4.0-10.0) x10^3/uL RBC 3.92 L (4.00-5.50) x10^6/uL Hgb 11.1 L (12.0-16.0) g/dL Hct 34.9 (33.0-47.0) % MCV 89.0 (78.0-93.0) fL MCH 28.3 (26.0-32.0) pg MCHC 31.8 L (32.0-36.0) g/dL RDW Coeff of Kathrin 14.4 (10.0-15.0) % Plt Count 384 (130-400) x10^3/uL Add Manual Diff Yes Neutrophils % (Manual) 63 (50-80) % Band Neutrophils % 2 (0-6) % Lymphocytes % (Manual) 31 (25-50) % Monocytes % (Manual) 1 L (2-11) % Eosinophils % (Manual) 3 (0-4) % Platelet Estimate Adequate Sodium 139 (136-145) mmol/L Potassium 3.7 (3.5-5.1) mmol/L Chloride 105 (98-107) mmol/L Carbon Dioxide 30 (21-32) mmol/L BUN 10 (7-18) mg/dL Creatinine 1.0 (0.55-1.02) mg/dL Est Cr Clr Drug Dosing 75.61 mL/min Estimated GFR (MDRD) > 60 Glucose 88 (74-106) mg/dL Calcium 7.9 L (8.5-10.1) mg/dL Urine Color Dark yellow H (YELLOW) Urine Appearance Slightly cloudy H (CLEAR) Urine pH 7.0 (5.0-8.0) Ur Specific [place] 1.025 Urine Protein 30 H (NEGATIVE) mg/dL Urine Glucose (UA) Negative (NEGATIVE) mg/dL Urine Ketones Negative (NEGATIVE) mg/dL Urine Occult Blood Moderate H (NEGATIVE) Urine Nitrite Negative (NEGATIVE) Urine Bilirubin Negative (NEGATIVE) Urine Urobilinogen 0.2 (0.2) EU/dL Ur Leukocyte Esterase Small H (NEGATIVE) Urine RBC >100 H (NOT SEEN) /HPF Urine WBC 0-5 (NOT SEEN) /HPF Ur Squamous Epith Cells Moderate H (NEGATIVE) /HPF Urine Bacteria Moderate H (NEGATIVE) /HPF Urine Mucus Moderate H (NEGATIVE) /LPF ARMOND Results - Last 24 hrs: Microbiology 07/18/17 08:30 MRSA Clearance Screen - Final Nares, Right NO MRSA ISOLATED Med Orders - Current: Current Medications Acetaminophen (Tylenol) 650 mg PO Q4H PRN PRN Reason: Pain (Mild 1-3)/fever Last Admin: 07/18/17 17:37 Dose: 650 mg Albuterol (Proventil Neb Soln) 2.5 mg INH Q4H PRN PRN Reason: Wheezing Ciprofloxacin/Dextrose 400 mg/ (Premix) 200 mls @ 200 mls/hr IV Q12H [facility] Last Admin: 07/19/17 09:39 Dose: 200 mls/hr Ketorolac Tromethamine (Toradol) 30 mg IVPUSH Q6H PRN PRN Reason: Pain (moderate 4-6) Last Admin: 07/19/17 06:31 Dose: 30 mg Lorazepam (Ativan) 0.5 mg PO TID PRN PRN Reason: Anxiety Last Admin: 07/18/17 23:08 Dose: 0.5 mg Morphine Sulfate (Morphine) 2 mg IVPUSH Q2H PRN PRN Reason: Pain (severe 7-10) Last Admin: 07/19/17 09:40 Dose: 2 mg Nicotine (Habitrol) 21 mg TRDERM DAILY [facility] Last Admin: 07/19/17 09:02 Dose: 21 mg Ondansetron HCl (Zofran) 4 mg IV Q6H PRN PRN Reason: Nausea/Vomiting Last Admin: 07/19/17 06:40 Dose: 4 mg Propranolol HCl (Inderal) 40 mg PO BID [facility] Last Admin: 07/19/17 09:02 Dose: 40 mg Quetiapine Fumarate (Seroquel) 100 mg PO Q24H [facility] Last Admin: 07/18/17 23:08 Dose: 100 mg Sodium Chloride (Saline Flush) 10 ml FLUSH ASDIRECTED PRN PRN Reason: Keep Vein Open Last Admin: 07/19/17 09:40 Dose: 10 ml Tamsulosin HCl (Flomax) 0.4 mg PO DAILY [facility] Last Admin: 07/19/17 09:02 Dose: 0.4 mg Venlafaxine HCl (Effexor Xr) 75 mg PO DAILY [facility] Last Admin: 07/19/17 09:03 Dose: 75 mg Venlafaxine HCl (Effexor Xr) 150 mg PO DAILY [facility] Last Admin: 07/19/17 09:02 Dose: 150 mg Zolpidem Tartrate (Ambien) 10 mg PO BEDTIME PRN PRN Reason: Insomnia Last Admin: 07/18/17 23:09 Dose: 10 mg Discontinued Medications Hydromorphone HCl (Dilaudid) 2 mg IVPUSH ONETIME ONE Stop: 07/17/17 20:48 Last Admin: 07/17/17 20:52 Dose: 2 mg Sodium Chloride (Normal Saline) 1,000 mls @ 999 mls/hr IV ONETIME ONE Stop: 07/17/17 20:09 Last Admin: 07/17/17 19:48 Dose: 999 mls/hr Sodium Chloride (Normal Saline) 1,000 mls @ 150 mls/hr IV ASDIRECTED [facility] Last Admin: 07/18/17 05:23 Dose: 150 mls/hr Metoclopramide HCl (Reglan) 10 mg IVPUSH ONETIME ONE Stop: 07/19/17 09:55 Last Admin: 07/19/17 10:08 Dose: 10 mg Metoclopramide HCl (Reglan) 10 mg IVPUSH ONETIME ONE Stop: 07/19/17 10:31 Last Admin: 07/19/17 10:25 Dose: Not Given Morphine Sulfate (Morphine) 2 mg IVPUSH ONETIME ONE Stop: 07/17/17 19:11 Last Admin: 07/17/17 19:51 Dose: 2 mg Non-Formulary Medication (Propranolol [Inderal La]) 80 mg PO DAILY [facility] Last Admin: 07/18/17 13:56 Dose: Not Given Ondansetron HCl (Zofran) 4 mg IVPUSH ONETIME ONE Stop: 07/17/17 19:20 Last Admin: 07/17/17 19:48 Dose: 4 mg Quetiapine Fumarate (Seroquel) 100 mg PO BEDTIME [facility] Quetiapine Fumarate (Seroquel) 100 mg PO BEDTIME [facility] Last Admin: 07/18/17 22:12 Dose: Not Given Sodium Chloride (Saline Flush) 10 ml FLUSH ASDIRECTED PRN PRN Reason: Keep Vein Open Last Admin: 07/18/17 05:19 Dose: 10 ml *Q Meaningful Use (DIS) - VTE *Q VTE Criteria *Q: Early ambulation - Stroke *Q Stroke Criteria *Q: not applicable - AMI *Q AMI Criteria *Q:
== END 2017-07-19 11:15 | disposition home or self-care (01) ==
LOC: VM.ED 18:59 → VM.MS 21:06
PROVIDERS: ADMIT Nurse Practitioner Family; ATTEND Nurse Practitioner Family
DX: N12 Tubulo-interstitial nephritis, not specified as acute or chronic (principal); N30.01 Acute cystitis with hematuria; J45.909 Unspecified asthma, uncomplicated; K21.9 Gastro-esophageal reflux disease without esophagitis; F41.9 Anxiety disorder, unspecified; F32.9 Major depressive disorder, single episode, unspecified; E66.9 Obesity, unspecified; Z88.0 Allergy status to penicillin; Z88.8 Allergy status to other drugs, medicaments and biological substances; Z79.899 Other long term (current) drug therapy; Z98.890 Other specified postprocedural states; F17.210 Nicotine dependence, cigarettes, uncomplicated
CPT/HCPCS: 36415; 74176; 80048; 81001; 81025; 85025; 87070; 87086; 96361; 96365; 96366; 96375; 96376; 99285; A9270; G0378; J0744; J1170; J1885; J2270; J2405; J2765; J7030; J7050; 96374

== ENCOUNTER 2017-08-03 17:38 | Emergency (ER) | payer SELFPAY ==
--- NOTE | 2017-08-03 17:54 | EDM.PDOC ---
ED HPI GENERAL MEDICAL PROBLEM - General Chief Complaint: Genitourinary Problem Stated Complaint: lower pelvic pain; chills; fever Time Seen by Provider: 08/03/17 17:42 Source of Information: Reports: Patient, RN, RN Notes Reviewed History Limitations: Reports: No Limitations - History of Present Illness INITIAL COMMENTS - FREE TEXT/NARRATIVE: Patient presents emergency room complaining of bilateral lower pelvic pain, right greater than left. The patient has a long-standing history of nephrolithiasis. The patient had a right ureteral stent placed October 2015. The patient failed to have the stent removed in a timely manner and until recently she has began having problems. Recent CT scans revealed that the patient has much calcification around the stent. It is recommended that the patient have the stent surgically removed. The patient was recently hospitalized last week at [facility] in [place]. The patient states that she does have additional ureteral stones. The patient states over the past few days she has done well up until today. The patient states her pain began suddenly. She states is sharp and stabbing and throbbing. The patient is tearful. The patient appears somewhat agitated and anxious from the pain. Otherwise no other concerns. 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 (see below) (None) - Related Data Allergies Allergy/AdvReac Type Severity Reaction Status Date / Time diphenhydramine HCl Allergy Itching Verified 08/03/17 18:01 [From Benadryl] Penicillins Allergy Rash Verified 08/03/17 18:01 buspirone [From BuSpar] AdvReac Confusion Verified 08/03/17 18:01 Home Meds: Home Meds LORazepam 0.5 mg PO TID PRN 01/02/17 [History] Propranolol [Inderal LA] 80 mg PO DAILY 01/02/17 [History] QUEtiapine [SEROquel] 100 mg PO BEDTIME 01/02/17 [History] Venlafaxine [Effexor XR] 150 mg PO DAILY 01/02/17 [History] Zolpidem [Ambien] 10 mg PO BEDTIME PRN 01/02/17 [History] Albuterol Sulfate [Proair Hfa] 2 inh INH Q4H PRN 07/17/17 [History] Venlafaxine HCl [Venlafaxine ER] 75 mg PO DAILY 07/17/17 [History] Propranolol [Inderal] 40 mg PO BID tablet 07/19/17 [Rx] Tamsulosin [Flomax] 0.4 mg PO DAILY #0 cap.er 07/19/17 [Rx] Past Medical History HEENT History: Reports: None Cardiovascular History: Reports: None Respiratory History: Reports: Asthma Gastrointestinal History: Reports: Cholelithiasis, GERD Genitourinary History: Reports: Pyelonephritis, Renal Calculus 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: Dysfunctional Uterine Bleeding, , Spontaneous Musculoskeletal History: Reports: None Neurological History: Reports: Headaches, Chronic, Migraines, Seizure Psychiatric History: Reports: Anxiety, Depression, Panic Attack Endocrine/Metabolic History: Reports: Obesity/BMI 30+ Hematologic History: Reports: None Immunologic History: Reports: None Oncologic (Cancer) History: Reports: Other (See Below) Other Oncologic History: 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 Dermatologic History: Reports: None - Infectious Disease History Infectious Disease History: Reports: MRSA Other Infectious Disease History: Mononucleosis x3 before the age of 15, previous HPV as above - Past Surgical History HEENT Surgical History: Reports: Adenoidectomy, Myringotomy w Tube(s), Oral Surgery, Tonsillectomy Female Surgical History: Reports: Section, Cervical Cryotherapy, Lithotripsy/ESWL, Ureteral Stent, Other (See Below) Musculoskeletal Surgical History: Reports: None, Arthroscopic Procedure, Other ( See Below) - Past Imaging History Past Imaging History: Reports: CAT Scan, MRI Social & Family History - Family History Family Medical History: Noncontributory - Tobacco Use Smoking Status *Q: Current Every Day Smoker Years of Tobacco use: 6 Packs/Tins Daily: 0.5 Second Hand Smoke Exposure: No - Caffeine Use Caffeine Use: Reports: Coffee, Soda - Alcohol Use Days Per Week of Alcohol Use: 0 (No previous DWIs, problems with alcohol abuse) - Recreational Drug Use Recreational Drug Use: Yes Drug Use in Last 12 Months: Yes Recreational Drug Type: Reports: Marijuana/Hashish Recreational Drug Use Frequency: Rarely Recreational Drug Last Use: 3 sodas per day - Sexual History Sexual History: Reports: Same Sex Partner, Sexually Active - Living Situation & Occupation Living situation: Reports: with Significant Other Occupation: Unemployed ED ROS GENERAL - Review of Systems Review Of Systems: See Below Constitutional: Reports: Fever, Chills, Decreased Appetite Respiratory: Denies: Shortness of Breath, Cough Cardiovascular: Denies: Chest Pain, Palpitations GI/Abdominal: Reports: Abdominal Pain, Nausea. Denies: Vomiting : Reports: Pain, Urinary Retention Skin: Reports: No Symptoms Neurological: Reports: No Symptoms ED EXAM, RENAL/ - Physical Exam Exam: See Below Exam Limited By: No Limitations General Appearance: Alert, Mild Distress, Obese Respiratory/Chest: No Respiratory Distress, Lungs Clear, Normal Breath Sounds Cardiovascular: Normal Peripheral Pulses, Regular Rate, Rhythm GI/Abdominal: Abnormal Bowel Sounds (Hypoactive), Other (bilateral lower pelvic pain, R>L on deep palpation) (Female) Exam: Deferred Neurological: Alert, Oriented Skin Exam: Warm, Dry, Intact, Normal Color, No Rash Course - Vital Signs Last Recorded V/S: Last Vital Signs Temp 36.8 C 08/03/17 17:45 Pulse 86 08/03/17 17:45 Resp 20 08/03/17 17:45 BP 163/90 H 08/03/17 17:45 Pulse Ox 98 08/03/17 17:45 - Orders/Labs/Meds Orders: Active Orders 24 hr Category Date Time Status BASIC METABOLIC PANEL,BMP [CHEM] Stat Lab 08/03/17 18:23 Received CBC WITH AUTO DIFF [HEME] Stat Lab 08/03/17 18:23 Results MANUAL DIFFERENTIAL QA/NC [HEME] Stat Lab 08/03/17 18:23 Results UA W/MICROSCOPIC [URIN] Stat Lab 08/03/17 18:30 Ordered Labs: Laboratory Tests 08/03/17 Range/Units 18:23 WBC 12.5 H (4.0-10.0) x10^3/uL RBC 4.88 (4.00-5.50) x10^6/uL Hgb 13.6 D (12.0-16.0) g/dL Hct 42.0 (33.0-47.0) % MCV 86.1 (78.0-93.0) fL MCH 27.9 (26.0-32.0) pg MCHC 32.4 (32.0-36.0) g/dL RDW Coeff of Kathrin 14.9 (10.0-15.0) % Plt Count 408 H (130-400) x10^3/uL Add Manual Diff Yes Meds: Medications Discontinued Medications Generic Name Dose Route Start Last Admin Trade Name Baldev PRN Reason Stop Dose Admin Morphine Sulfate 4 mg 08/03/17 18:09 08/03/17 18:28 Morphine IM 08/03/17 18:10 4 mg ONETIME ONE Administration Departure - Departure Time of Disposition: 18:53 Disposition: Home, Self-Care 01 Condition: Good Clinical Impression: Pelvic pain, History of kidney stones - Discharge Information Instructions: Kidney Stones, [id number] Referrals: Tomás Chavez PA-C [Primary Care Provider] - Forms: ED Department Discharge Additional Instructions: 1. Stay well hydrated and rest 2. Take pain medications as directed 3. Make appointment to see Tomás in clinic this week or next if you need more pain medication 4. You still have a very small UTI, I recommend Tomás recheck this in clinic when you see him - Problem List Review Problem List Initiated/Reviewed/Updated: Yes - My Orders Last 24 Hours: My Active Orders 08/03/17 18:23 BASIC METABOLIC PANEL,BMP [CHEM] Stat CBC WITH AUTO DIFF [HEME] Stat MANUAL DIFFERENTIAL QA/NC [HEME] Stat 08/03/17 18:30 UA W/MICROSCOPIC [URIN] Stat - Assessment/Plan Last 24 Hours: My Active Orders 08/03/17 18:23 BASIC METABOLIC PANEL,BMP [CHEM] Stat CBC WITH AUTO DIFF [HEME] Stat MANUAL DIFFERENTIAL QA/NC [HEME] Stat 08/03/17 18:30 UA W/MICROSCOPIC [URIN] Stat
[2017-08-03 17:58] VITALS: BP 163/90
[2017-08-03] MEDS ORDERED: Morphine 4 MG/ML Syringe IM ONE (18:09)
[2017-08-03 18:52] LABS: CHLORIDE,CL 103 mmol/L (98-107); SODIUM,NA 138 mmol/L (136-145)
[2017-08-03] MEDS ORDERED: Take Home: Acetaminophen/HYDROcodone 325-5 MG, 5 Tab Pack PO ONE (18:52)
== END 2017-08-03 19:07 | disposition home or self-care (01) ==
LOC: VM.ED 17:38
DX: R10.2 Pelvic and perineal pain (principal); J45.909 Unspecified asthma, uncomplicated; K21.9 Gastro-esophageal reflux disease without esophagitis; E66.9 Obesity, unspecified; F17.210 Nicotine dependence, cigarettes, uncomplicated; Z88.8 Allergy status to other drugs, medicaments and biological substances; Z88.0 Allergy status to penicillin; Z79.899 Other long term (current) drug therapy; Z87.442 Personal history of urinary calculi
CPT/HCPCS: 36415; 80048; 81001; 85025; 99283; A9270; J2270; 99284-GF

== ENCOUNTER 2021-06-12 14:13 | Emergency (ER) | payer MEDICAID ==
[2021-06-12 15:21] VITALS: BP 123/84; PULSE 99
--- NOTE | 2021-06-12 15:31 | EDM.PDOC ---
ED HPI GENERAL MEDICAL PROBLEM - General Chief Complaint: Skin Complaint Stated Complaint: itchy rash Time Seen by Provider: 06/12/21 15:00 Source of Information: Reports: Patient History Limitations: Reports: No Limitations - History of Present Illness INITIAL COMMENTS - FREE TEXT/NARRATIVE: Patient comes into the emergency department complaint of diffuse rash. Patient states that she has been staying at a friend's house monitoring her children and has noticed the one child developed a significant rash approximately 3 days ago a second child developed 148 hours ago and she has now developed it in the last 24 hours. She states that they will slept in the same bed. There are other individuals in the house that have not had any rashes yet. Patient states that the rash is itchy and diffuse throughout the body. She denies them weeping, crusting formation, or increased warmth. Onset: Sudden Quality: Reports: Other Severity: Moderate Improves with: Reports: None Worsens with: Reports: None Associated Symptoms: Reports: No Other Symptoms - Related Data Allergies Allergy/AdvReac Type Severity Reaction Status Date / Time diphenhydramine HCl Allergy Itching Verified 06/12/21 15:46 [From Benadryl] Penicillins Allergy Rash Verified 06/12/21 15:46 buspirone [From BuSpar] AdvReac Confusion Verified 06/12/21 15:46 Home Meds: Home Meds LORazepam 0.5 mg PO TID PRN 01/02/17 [History] Propranolol [Inderal LA] 80 mg PO DAILY 01/02/17 [History] QUEtiapine [SEROquel] 100 mg PO BEDTIME 01/02/17 [History] Venlafaxine [Effexor XR] 150 mg PO DAILY 01/02/17 [History] Zolpidem [Ambien] 10 mg PO BEDTIME PRN 01/02/17 [History] Albuterol Sulfate [Proair Hfa] 2 inh INH Q4H PRN 07/17/17 [History] Venlafaxine HCl [Venlafaxine ER] 75 mg PO DAILY 07/17/17 [History] Propranolol [Inderal] 40 mg PO BID tablet 07/19/17 [Rx] Tamsulosin [Flomax] 0.4 mg PO DAILY #0 cap.er 07/19/17 [Rx] Past Medical History HEENT History: Reports: None Cardiovascular History: Reports: None Respiratory History: Reports: Asthma Gastrointestinal History: Reports: Cholelithiasis, GERD Genitourinary History: Reports: Pyelonephritis, Renal Calculus 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: Dysfunctional Uterine Bleeding, , Spontaneous Musculoskeletal History: Reports: None Neurological History: Reports: Headaches, Chronic, Migraines, Seizure Psychiatric History: Reports: Anxiety, Depression, Panic Attack Endocrine/Metabolic History: Reports: Obesity/BMI 30+ Hematologic History: Reports: None Immunologic History: Reports: None Oncologic (Cancer) History: Reports: Other (See Below) Other Oncologic History: 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 Dermatologic History: Reports: None - Infectious Disease History Infectious Disease History: Reports: MRSA Other Infectious Disease History: Mononucleosis x3 before the age of 15, previous HPV as above - Past Surgical History HEENT Surgical History: Reports: Adenoidectomy, Myringotomy w Tube(s), Oral Surgery, Tonsillectomy Female Surgical History: Reports: Section, Cervical Cryotherapy, Lithotripsy/ESWL, Ureteral Stent, Other (See Below) Musculoskeletal Surgical History: Reports: None, Arthroscopic Procedure, Other (See Below) - Past Imaging History Past Imaging History: Reports: CAT Scan, MRI Social & Family History - Family History Family Medical History: No Pertinent Family History - Caffeine Use Caffeine Use: Reports: Coffee, Soda - Sexual History Sexual History: Reports: Same Sex Partner, Sexually Active - Living Situation & Occupation Living situation: Reports: with Significant Other Occupation: Unemployed ED ROS GENERAL - Review of Systems Review Of Systems: Comprehensive ROS is negative, except as noted in HPI. Constitutional: Reports: No Symptoms HEENT: Reports: No Symptoms Respiratory: Reports: No Symptoms Cardiovascular: Reports: No Symptoms Endocrine: Reports: No Symptoms GI/Abdominal: Reports: No Symptoms : Reports: No Symptoms Musculoskeletal: Reports: No Symptoms Neurological: Reports: No Symptoms Psychiatric: Reports: No Symptoms Hematologic/Lymphatic: Reports: No Symptoms Immunologic: Reports: No Symptoms ED EXAM, SKIN/RASH Exam: See Below Exam Limited By: No Limitations General Appearance: Alert, WD/WN, No Apparent Distress Nose: Normal Inspection, Normal Mucosa Head: Atraumatic, Normocephalic Neck: Normal Inspection, Supple, Non-Tender, Full Range of Motion Respiratory/Chest: No Respiratory Distress, No Accessory Muscle Use, Chest Non- Tender Cardiovascular: Normal Peripheral Pulses, Regular Rate, Rhythm Back Exam: Normal Inspection, Full Range of Motion Extremities: Normal Inspection, Normal Range of Motion, Non-Tender Neurological: Alert, Oriented Skin: Warm, Dry, Intact Location, Skin: Chest, Abdomen, Upper Extremity, Left, Lower Extremity, Right, Generalized Characteristics: Other Associated features: Inflammation Lymphatic: Other Course - Vital Signs Last Recorded V/S: Last Vital Signs Temp 36.4 C 06/12/21 15:19 Pulse 99 06/12/21 15:19 Resp 17 06/12/21 15:19 BP 123/84 06/12/21 15:19 Pulse Ox 97 06/12/21 15:19 Departure - Departure Time of Disposition: 15:15 Disposition: Home, Self-Care 01 Condition: Good Clinical Impression: Infestation by bed bug - Discharge Information *PRESCRIPTION DRUG MONITORING PROGRAM REVIEWED*: Not Applicable *COPY OF PRESCRIPTION DRUG MONITORING REPORT IN PATIENT PHILIP: Not Applicable Instructions: Bedbugs, [id number] Referrals: PCP,None [Primary Care Provider] - Forms: ED Department Discharge Additional Instructions: 1. rest 2. increase your water intake 3. Continue all at home medications 4. Activity and diet as tolerated 5. Can take over the counter Tylenol for any pain or discomfort 6. Follow up with PCP if symptoms continue, return, or progress 7. Call with any questions or concerns Sepsis Event Note (ED) - Focused Exam Vital Signs: Vital Signs Temp Pulse Resp BP Pulse Ox 06/12/21 15:19 36.4 C 99 17 123/84 97 - Assessment/Plan Assessment:: 1. bed bug bites Plan: 1. Education regarding appropriate cleaning was provided. 2. Education provided the patient regarding activity, diet, rest, [id number] medication modalities, and follow-up care was provided 3. Patient and family are agreeable to the above plan of care 4. All questions and concerns were addressed with the patient and family prior to discharge
== END 2021-06-12 15:39 | disposition home or self-care (01) ==
LOC: VM.ED 14:13
DX: B88.8 Other specified infestations (principal); J45.909 Unspecified asthma, uncomplicated; E66.9 Obesity, unspecified; Z88.0 Allergy status to penicillin; Z88.8 Allergy status to other drugs, medicaments and biological substances; Z79.899 Other long term (current) drug therapy
CPT/HCPCS: 99282; 99283

== ENCOUNTER 2022-01-25 07:12 | Emergency (ER) | payer MEDICAID ==
[2022-01-25] MEDS ORDERED: Ondansetron 4 MG/2 ML SDV IVPUSH ONE ×2 (07:36→09:18)
[2022-01-25] MEDS ORDERED: Sodium Chloride 0.9% 1,000 ML IV ONE (07:36)
[2022-01-25] MEDS ORDERED: Morphine 2 MG/ML SYRINGE IVPUSH ONE (07:36)
[2022-01-25 07:56] LABS: CHLORIDE,CL 102 mmol/L (98-107); SODIUM,NA 136 mmol/L (136-145)
[2022-01-25] MEDS ORDERED: Promethazine 12.5 MG in Sodium Chloride 0.9% 100 ML IV ONE (07:57)
[2022-01-25] MEDS ORDERED: HYDROmorphone 1 MG/ML Syringe IVPUSH ONE ×2 (07:57→09:18)
[2022-01-25 07:58] LABS: ANION GAP 12.4 mmol/L (5-15)
[2022-01-25] MEDS ORDERED: Promethazine 25 MG/ML SDV ONE (08:03)
[2022-01-25 10:31] VITALS: BP 136/86; PULSE 83
== END 2022-01-25 10:45 | disposition home or self-care (01) ==
LOC: VM.ED 07:12
DX: N23 Unspecified renal colic (principal); R31.9 Hematuria, unspecified; K21.9 Gastro-esophageal reflux disease without esophagitis; Z88.0 Allergy status to penicillin; Z88.8 Allergy status to other drugs, medicaments and biological substances
CPT/HCPCS: 80048; 81001; 85025; 96365; 96375; 96376; 99284; 99284-25; J1170; J2270; J2405; J2550; J7030

== ENCOUNTER 2024-07-20 15:23 | Emergency (ER) | payer MEDICAID ==
[2024-07-20] MEDS: hydrOXYzine HCl 50 MG/ML SDV IM ONE (16:14)
[2024-07-20] MEDS: Diphtheria,Pertussis(Acell),Tetanus Vaccine 0.5 ML Syringe IM ONE (16:16)
[2024-07-20 16:52] VITALS: BP 120/76; PULSE 104
== END 2024-07-20 16:45 | disposition home or self-care (01) ==
LOC: VM.ED 15:23
DX: S93.401A Sprain of unspecified ligament of right ankle, initial encounter (principal); E66.9 Obesity, unspecified; Z79.899 Other long term (current) drug therapy; Z88.0 Allergy status to penicillin; Z88.8 Allergy status to other drugs, medicaments and biological substances; X58.XXXA Exposure to other specified factors, initial encounter
CPT/HCPCS: 73610-RT; 90471; 90715; 96372; 99283-25; 99284; J3410